=== PATIENT | female | born 1995 | race African-American/Black ===

== ENCOUNTER 2020-07-23 14:34 | Emergency (ER) | payer BC ==
[~2020-07-23] VITALS: Ht 167.6 cm; Wt 54.4 kg
--- NOTE | 2020-07-23 14:35 | NUR ---
BIB self for c/o epigastric pain radiating to her back x3 hours.The patient AAO x4. In room air and denies SOB. Respiration regular and unlabored. Waiting for to be seen by MD. Provided the patient with a warm blanket.
--- NOTE | 2020-07-23 14:45 | NUR ---
Patient came into ER c/o epigastric pain radiating to back. Denies N/V/D. Vital signs stable. Awaiting to be seen by MD. Will continue to monitor.
--- NOTE | 2020-07-23 15:00 | NUR ---
restorative care technician at bedside.
[2020-07-23] MEDS ORDERED: ONDANSETRON HCL/PF 4 MG/2 ML VIAL ONE (15:24)
[2020-07-23] MEDS ORDERED: MORPHINE SULFATE INJ 4 MG/ML DISP.SYRIN ONE (15:25)
[2020-07-23] MEDS: MORPHINE SULFATE INJ 2 MG/ML DISP.SYRIN IV ONE (15:37)
[2020-07-23] MEDS: ONDANSETRON HCL/PF 4 MG/2 ML VIAL IVP ONE (15:37)
--- NOTE | 2020-07-23 15:38 | NUR ---
IV line started in the ANY#22g s/l. Labs drawn and sent to lab.
[2020-07-23 15:43] LABS: BASOPHILS # (AUTO) 0.1 /CMM (0.0-0.2); BASOPHILS % (AUTO) 0.8 % (0.0-2.0); EOSINOPHILS % (AUTO) 4.9 % (0.0-6.0); HEMATOCRIT 37 % (33-45); HEMOGLOBIN 12.2 g/dL (11.5-14.8); LYMPHOCYTES # (AUTO) 2.9 /CMM (0.8-4.8); LYMPHOCYTES % (AUTO) 37.4 % (20.0-44.0); MEAN CORPUSCULAR HGB CONC 34 g/dl (31.0-36.0); MEAN CORPUSCULAR VOLUME 98 fL (82-100); MONOCYTES # (AUTO) 0.6 /CMM (0.1-1.30); MONOCYTES % (AUTO) 7.6 % (2.0-12.0); NEUTROPHILS # (AUTO) 3.8 /CMM (1.8-8.9); NEUTROPHILS % (AUTO) 49.3 % (43.0-81.0); PLATELET COUNT (AUTO) 214 /CMM (150-450); RED BLOOD CELL COUNT(AUTO) 3.74 MIL/uL (4.0-5.2); WHITE BLOOD COUNT (AUTO) 7.8 K/uL (4.3-11.0)
[2020-07-23 15:55] LABS: CALCIUM, SERUM 9.3 mg/dL (8.5-10.1); CREATININE 0.9 mg/dL (0.6-1.3); POTASSIUM 3.7 mmol/L (3.5-5.1)
[2020-07-23 15:57] LABS: BILIRUBIN,URINE NEGATIVE (NEGATIVE); COLOR,URINE YELLOW (YELLOW); LEUKOCYTE ESTERASE ,URINE NEGATIVE (NEGATIVE); NITRITE, URINE NEGATIVE (NEGATIVE); PH,URINE 7.5 (5.0-8.0); PROTEIN,URINE NEGATIVE (NEGATIVE); UGLUCOSE NEGATIVE (NEGATIVE); UROBILINOGEN,URINE 0.2 EU/dL (0.2)
[2020-07-23 16:01] LABS: ALBUMIN 3.7 g/dL (3.4-5.0); BILIRUBIN,DIRECT 0.1 mg/dL (0.0-0.2); BILIRUBIN,TOTAL 0.2 mg/dL (0.2-1.0); TOTAL PROTEIN, SERUM 7.4 g/dL (6.4-8.2)
[2020-07-23 16:10] LABS: BACTERIA,URINE None seen /HPF (None Seen); RBC,URINE 0-2 /HPF (0-2); SQUAMOUS EPITHELIAL CELL,UR 0-2 /HPF (None Seen); WBC,URINE 0-2 /HPF (0-3)
[2020-07-23 16:11] LABS: URINE AMORPHOUS PHOSPHATES Moderate /HPF (None Seen)
[2020-07-23] MEDS ORDERED: IBUP-1955 PO (16:50)
[2020-07-23] MEDS ORDERED: DICY10AM2 IM (16:50)
[2020-07-23 17:03] VITALS: BP 118/75
== END 2020-07-23 17:04 | disposition home or self-care (01) ==
LOC: ER 14:44
DX: R10.11 Right upper quadrant pain (principal); R19.7 Diarrhea, unspecified; K82.8 Other specified diseases of gallbladder; F17.200 Nicotine dependence, unspecified, uncomplicated
CPT/HCPCS: 36415; 76705; 80048; 80076; 81001; 83690; 84702; 85025; 96374; 96375; 99284; J2270; J2405

== ENCOUNTER 2020-07-28 12:25 | Emergency (ER) | payer BC ==
[~2020-07-28] VITALS: Ht 167.6 cm; Wt 56.7 kg
[~2020-07-28 12:25] MED LIST: DICY10AM2 IM; IBUP-1955 PO
--- NOTE | 2020-07-28 12:35 | NUR ---
Pt AA&Ox3, BIB self for c/o gnawing epigastric pain 9 to mid and LUQ that has been progressively getting worse over the last few hours. Pt denies N/V. Pt states that she was here for a "gallbladder flare up" last week but was not admitted at that time.
--- NOTE | 2020-07-28 12:37 | NUR ---
DR MILLER AT BEDSIDE
[2020-07-28] MEDS ORDERED: HYDROCODONE/APAP 5/325MG TABLET PO ONE (13:00)
[2020-07-28] MEDS ORDERED: MAG HYDROX/AL HYDROX/SIMETH 30 ML UDC PO ONE (13:00)
[2020-07-28] MEDS ORDERED: LIDOCAINE VISCOUS 2% UD 15 ML UDC MM ONE (13:00)
[2020-07-28] MEDS ORDERED: MAGNESIUM HYDROXIDE 30 ML UDC ONE (13:01)
[2020-07-28] MEDS ORDERED: LIDOCAINE VISCOUS 2% UD 15 ML UDC ONE (13:01)
[2020-07-28] MEDS ORDERED: HYDROCODONE/APAP 5/325MG TABLET ONE (13:02)
[2020-07-28 13:04] LABS: BASOPHILS % (AUTO) 0.3 % (0.0-2.0); HEMATOCRIT 36 % (33-45); HEMOGLOBIN 12.2 g/dL (11.5-14.8); LYMPHOCYTES # (AUTO) 2.9 /CMM (0.8-4.8); MEAN CORPUSCULAR HGB CONC 34 g/dl (31.0-36.0); MEAN CORPUSCULAR VOLUME 99 fL (82-100); MONOCYTES # (AUTO) 0.6 /CMM (0.1-1.30); MONOCYTES % (AUTO) 6.8 % (2.0-12.0); NEUTROPHILS # (AUTO) 4.7 /CMM (1.8-8.9); NEUTROPHILS % (AUTO) 51.9 % (43.0-81.0); PLATELET COUNT (AUTO) 197 /CMM (150-450); RED BLOOD CELL COUNT(AUTO) 3.64 MIL/uL (4.0-5.2); WHITE BLOOD COUNT (AUTO) 9.1 K/uL (4.3-11.0)
[2020-07-28 13:18] LABS: CREATININE 0.8 mg/dL (0.6-1.3); POTASSIUM 4.1 mmol/L (3.5-5.1)
[2020-07-28 13:24] LABS: ALBUMIN 3.7 g/dL (3.4-5.0); BILIRUBIN,DIRECT 0.1 mg/dL (0.0-0.2); BILIRUBIN,TOTAL 0.2 mg/dL (0.2-1.0); TOTAL PROTEIN, SERUM 7.4 g/dL (6.4-8.2)
[2020-07-28] MEDS ORDERED: HYDR-3972 PO (13:32)
[2020-07-28] MEDS ORDERED: PANT20TA2 PO (13:32)
--- NOTE | 2020-07-28 13:47 | NUR ---
Patient discharged to home in stable condition. Written and verbal after care instructions given. Patient verbalizes understanding of instruction.
[2020-07-28 13:48] VITALS: BP 112/70
== END 2020-07-28 13:48 | disposition home or self-care (01) ==
LOC: ER 12:27
DX: R10.13 Epigastric pain (principal); F17.200 Nicotine dependence, unspecified, uncomplicated; Z79.899 Other long term (current) drug therapy
CPT/HCPCS: 36415; 80048-TC; 80076-TC; 83690-TC; 84703-TC; 85025-TC